=== PATIENT | female | born 1960 | race Caucasian/White ===

== ENCOUNTER 2017-04-06 14:57 | Emergency (ER) | payer BC, OTHER ==
[~2017-04-06] VITALS: Ht 160 cm; Wt 65.0 kg
[2017-04-06 15:09] VITALS: BP 166/99
[2017-04-06] MEDS ORDERED: LORazepam 1MG TABLET ONE (16:56)
[2017-04-06] MEDS ORDERED: PLEASE ENTER ALLERGIES MC SCH ×2 (17:00)
[2017-04-06] MEDS ORDERED: LORazepam 1MG TABLET PO ONE (17:00)
== END 2017-04-06 18:35 | disposition home or self-care (01) ==
LOC: ED 18:25
DX: H54.3 Unqualified visual loss, both eyes (principal)
CPT/HCPCS: 70450; 70551; 93005; 99284